=== PATIENT | male | born 1985 | race Two or more races ===

== ENCOUNTER 2017-01-01 10:03 | Emergency (ER) | payer SELFPAY ==
[~2017-01-01] VITALS: Ht 175.3 cm; Wt 72.6 kg
[2017-01-01 10:13] VITALS: BP 109/72
[2017-01-01] MEDS ORDERED: DIPHTH,PERTUSS(ACELL),TET TOX 0.5 ML DISP.SYRIN. VAX IM ONE ×2 (10:25→10:30)
[2017-01-01] MEDS ORDERED: FLUORESCEIN OPHTH TEST STRIP. ONE (10:25)
[2017-01-01] MEDS ORDERED: TETRACAINE 0.5% OPHTH SOLUTION 4ML BOTTLE. ONE (10:25)
--- NOTE | 2017-01-01 10:29 | PHYS DOC ---
Past Medical History Past Medical History: No Pertinent History Past Surgical History: No Surgical History Alcohol Use: None Drug Use: None Adult General Chief Complaint Chief Complaint: EYE PROBLEMS HPI HPI Patient is a 31 year old male presents emergency Department today with complaint of right eye pain and foreign body sensation that began yesterday at approximately 5 PM. Patient states he was drilling a piece of metal with a drill overhead when he felt something hit his right eye. He admits not wearing safety glasses at that time. He is had continued pain and foreign body sensation since that time. Patient denies any additional complaints at this time. Patient does not have any history of chronic eye problems. He does not work contacts. Review of Systems Review of Systems Constitutional: Denies fever or chills [] Eyes: Denies change in visual acuity, redness, or eye pain [] HENT: Denies nasal congestion or sore throat [] Respiratory: Denies cough or shortness of breath [] Cardiovascular: No additional information not addressed in HPI [] GI: Denies abdominal pain, nausea, vomiting, bloody stools or diarrhea [] : Denies dysuria or hematuria [] Musculoskeletal: Denies back pain or joint pain [] Integument: Denies rash or skin lesions [] Neurologic: Denies headache, focal weakness or sensory changes [] Endocrine: Denies polyuria or polydipsia [] Current Medications Current Medications Current Medications Medications (Trade) Dose Ordered Sig/Camila Start Time Stop Time Status Last Admin Dose Admin Diphtheria/ Tetanus/Acell Pertussis (Boostrix) 0.5 ml STK-MED ONCE 01/01/17 10:25 01/01/17 10:26 DC Fluorescein Sodium (Ful-Radha) 1 strip 1X ONCE 01/01/17 10:30 01/01/17 10:31 DC 01/01/17 10:29 1 STRIP Tetracaine HCl (Tetracaine) 40 drop STK-MED ONCE 01/01/17 10:25 01/01/17 10:26 DC Allergies Allergies Allergies Coded Allergies Type Severity Reaction Last Updated Verified No Known Drug Allergies 09/06/15 No Physical Exam Physical Exam Constitutional: Well developed, well nourished, mild distress, non-toxic appearance. [] HENT: Normocephalic, atraumatic, bilateral external ears normal, oropharynx moist, no oral exudates, nose normal. [] Eyes: Periorbital region is normal in appearance. Lids and lashes are normal. Patient has a moderate amount of soap conjunctival injection. Tear film is clear. Extraocular motions are intact and 6 cardinal positions of gaze. There is a punctate defect to the center of the cornea.There is a visible corneal foreign body at the 5 o'clock position. There is not a restraining around either. Anterior chamber is deep, clear and quiet. Pupils equal round reactive to light and accommodation. Neck: Normal range of motion, no tenderness, supple, no stridor. [] Cardiovascular:Heart rate regular rhythm, no murmur [] Lungs & Thorax: Bilateral breath sounds clear to auscultation [] Abdomen: Bowel sounds normal, soft, no tenderness, no masses, no pulsatile masses. [] Skin: Warm, dry, no erythema, no rash. [] Back: No tenderness, no CVA tenderness. [] Extremities: No tenderness, no cyanosis, no clubbing, ROM intact, no edema. [] Neurologic: Alert and oriented X 3, normal motor function, normal sensory function, no focal deficits noted. [] Psychologic: Affect normal, judgement normal, mood normal. [] Current Patient Data Vital Signs Vital Signs Date Time Temp Pulse Resp B/P Pulse Ox O2 Delivery O2 Flow Rate FiO2 01/01/17 10:13 97.6 71 20 100 Room Air 97.6 EKG EKG [] Radiology/Procedures Radiology/Procedures Procedure note: Right eye was anesthetized with tetracaine solution. The corneal foreign body at the 5 o'clock position was removed with the tip of a 27- gauge needle. The punctate lesion to the center of the cornea had no foreign body in it. There was no rust ring around either lesion. Fluorescein stain was introduced to the eye and observed under Wood's lamp. There was a filling defect to both lesions. Negative Ogilvie's sign. Patient tolerated the procedure well. Course & Med Decision Making Course & Med Decision Making This was not a high velocity foreign body to the eye. I do not believe that any additional imaging is needed at this time. Dragon Disclaimer Dragon Disclaimer This electronic medical record was generated, in whole or in part, using a voice recognition dictation system. Departure Departure Impression: Primary Impression: Corneal foreign body Referrals: NO PCP (PCP) Tracey AGUILAR MD Patient Instructions: Diphtheria Toxoid; Tetanus Toxoid Adsorbed, DT, Td, Eye - Corneal Foreign Body Additional Instructions: 1. Review the discharge instructions provided for self-care and reasons to return to the emergency department. 2. Take the medication as prescribed. 3. Contact the [facility] hammer stri[facility] office, listed in this paperwork, tomorrow morning to schedule follow-up appointment for reevaluation. Scripts Hydrocodone/Apap 5-325 ([place] 5-325 Tablet)1 Each Tablet1 Tab PO PRN Q6HRS PRN PAIN #10 TAB Ref 0 Prov:RUBINA VILLALTA 01/01/17 Bacitracin 3.5 Gm Oint...g.1 Jacquie OD TID corneal abrasion 7 Days Prov:RUBINA VILLALTA 01/01/17 RUBINA VILLALTA Jan 01, 2017 10:29
[2017-01-01] MEDS ORDERED: TETRACAINE 0.5% OPHTH SOLUTION 4ML BOTTLE. OD ONE (10:30)
[2017-01-01] MEDS ORDERED: FLUORESCEIN OPHTH TEST STRIP. OD ONE (10:30)
[2017-01-01] MEDS ORDERED: BACI3.5O8 OD (10:32)
[2017-01-01] MEDS ORDERED: HYDR-971 PO (10:32)
== END 2017-01-01 10:53 | disposition home or self-care (01) ==
LOC: ER 10:03
DX: T15.01XA Foreign body in cornea, right eye, initial encounter (principal); W45.8XXA Other foreign body or object entering through skin, initial encounter; Y93.89 Activity, other specified; Y92.89 Other specified places as the place of occurrence of the external cause; Y99.8 Other external cause status
CPT/HCPCS: 65222; 90471; 90715; 99284-25

== ENCOUNTER 2017-01-01 12:11 | Emergency (ER) | payer SELFPAY ==
[~2017-01-01] VITALS: Ht 162.6 cm; Wt 77.1 kg
[~2017-01-01 12:11] MED LIST: BACI3.5O8 OD; HYDR-971 PO
[2017-01-01 12:31] VITALS: BP 129/82
--- NOTE | 2017-01-01 13:28 | PHYS DOC ---
Past Medical History Past Medical History: No Pertinent History Past Surgical History: No Surgical History Alcohol Use: None Drug Use: None Adult General Chief Complaint Chief Complaint: EYE PROBLEMS HPI HPI Patient is a 31 year old male returns emergency Department today with complaint that he has continued foreign body sensation in his right eye. Patient states that after the numbing medication wore off, he felt as if something drop from his upper eyelid down over his eye continued to cause irritation to his right eye. Patient was seen earlier today for a corneal foreign body. This was removed manually with a 27-gauge needle. He also had a small punctate defect to the center of the cornea. Review of Systems Review of Systems Constitutional: Denies fever or chills [] Eyes: Denies change in visual acuity, redness, or eye pain [] HENT: Denies nasal congestion or sore throat [] Respiratory: Denies cough or shortness of breath [] Cardiovascular: No additional information not addressed in HPI [] GI: Denies abdominal pain, nausea, vomiting, bloody stools or diarrhea [] : Denies dysuria or hematuria [] Musculoskeletal: Denies back pain or joint pain [] Integument: Denies rash or skin lesions [] Neurologic: Denies headache, focal weakness or sensory changes [] Endocrine: Denies polyuria or polydipsia [] Current Medications Current Medications Current Medications Medications (Trade) Dose Ordered Sig/Camila Start Time Stop Time Status Last Admin Dose Admin Eye Irrigation Solution (Eye-Stream) 120 ml 1X ONCE 01/01/17 13:30 01/01/17 13:31 DC 01/01/17 13:28 120 ML Tetracaine HCl (Tetracaine) 1 drop 1X ONCE 01/01/17 13:30 01/01/17 13:31 DC 01/01/17 13:28 1 DROP Allergies Allergies Allergies Coded Allergies Type Severity Reaction Last Updated Verified No Known Drug Allergies 09/06/15 No Physical Exam Physical Exam Constitutional: Well developed, well nourished, no acute distress, non-toxic appearance. [] HENT: Normocephalic, atraumatic, bilateral external ears normal, oropharynx moist, no oral exudates, nose normal. [] Eyes: Right periorbital region is normal in appearance. Lids and lashes are normal. Patient with mild subconjunctival injection and a clear tear film. There is no evidence of retained foreign body to the surface of the cornea or sclera. Upper lower eyelids were everted and examined. There is no evidence of foreign body in either. Neck: Normal range of motion, no tenderness, supple, no stridor. [] Cardiovascular:Heart rate regular rhythm, no murmur [] Lungs & Thorax: Bilateral breath sounds clear to auscultation [] Abdomen: Bowel sounds normal, soft, no tenderness, no masses, no pulsatile masses. [] Skin: Warm, dry, no erythema, no rash. [] Back: No tenderness, no CVA tenderness. [] Extremities: No tenderness, no cyanosis, no clubbing, ROM intact, no edema. [] Neurologic: Alert and oriented X 3, normal motor function, normal sensory function, no focal deficits noted. [] Psychologic: Affect normal, judgement normal, mood normal. [] Current Patient Data Vital Signs Vital Signs Date Time Temp Pulse Resp B/P Pulse Ox O2 Delivery O2 Flow Rate FiO2 01/01/17 12:31 97.5 59 18 100 Room Air 97.5 EKG EKG [] Radiology/Procedures Radiology/Procedures Procedure note: Patient's eye was reexamined after tetracaine solution was introduced. Both upper lower eyelids were everted. There is no evidence of foreign body in either. Patient's eye was then flushed with eyewash. His eyes were reexamined after flushing abdomen was found to still be no foreign body. Course & Med Decision Making Course & Med Decision Making I discussed the foreign body sensation with the patient and reassured him that there was no evidence of retained foreign body at this time. He understands that you can continue to have a foreign body sensation with a corneal abrasion for a day or so. I advised him to follow-up with the director of cardiac cath lab as recommended in his previous visit. Dragon Disclaimer Dragon Disclaimer This electronic medical record was generated, in whole or in part, using a voice recognition dictation system. Departure Departure Impression: Primary Impression: Sensation of foreign body in eye Disposition: 01 HOME, SELF-CARE Condition: GOOD Referrals: NO PCP (PCP) Tracey AGUILAR MD Patient Instructions: Eye - Corneal Abrasion, [id number] Additional Instructions: 1. Your eye was checked, flushed and rechecked. There is no evidence of retained foreign body under your eyelids were to the surface of your eye. 2. Follow the guidelines in your previous discharge instructions and call the director of cardiac cath lab office in the morning for follow-up. RUBINA VILLALTA Jan 01, 2017 13:28
[2017-01-01] MEDS ORDERED: EYE-STREAM OPHTH SOLUTION 120 ML BOTTLE. OD ONE (13:30)
[2017-01-01] MEDS ORDERED: TETRACAINE 0.5% OPHTH SOLUTION 4ML BOTTLE. OD ONE (13:30)
== END 2017-01-01 13:54 | disposition home or self-care (01) ==
LOC: ER 12:11
DX: H57.8 Other specified disorders of eye and adnexa (principal)
CPT/HCPCS: 99283